=== PATIENT | female | born 2005 | race Caucasian/White ===

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

== ENCOUNTER 2024-04-02 09:05 | Emergency (ER) | payer MEDICAID ==
[~2024-04-02] VITALS: Ht 157.5 cm; Wt 59.1 kg
[2024-04-02] MEDS: LIDOCAINE IJ ONE (10:32)
[2024-04-02] MEDS ORDERED: CEPH500C3 PO (10:41)
[2024-04-02] MEDS: TETanus/Pertussis (Acell)/Diphther VAC/PF (Tdap-Adult) 0.5ml syringe IMVAC ONE (10:48)
[2024-04-02 10:54] VITALS: BP 127/65; PULSE 82; RESP 16; TEMP 97.8; O2SAT 98
== END 2024-04-02 10:55 | disposition home or self-care (01) ==
LOC: ER 09:06
DX: L02.31 Cutaneous abscess of buttock (principal)
CPT/HCPCS: 10060; 87070; 90471; 90715; 99283; A6407; A6449